=== PATIENT | female | born 1990 | race Two or more races ===

== ENCOUNTER 2023-06-16 09:39 | Outpatient (CLI) | payer OTHER ==
[2023-06-16 10:13] LABS: PH,URINE 7.5 (5.0-8.0); URINE APPEARANCE Clear; URINE BILIRRUBIN Negative (NEGATIVE); URINE BLOOD Negative; URINE COLOR Yellow; URINE GLUCOSE Negative (NEGATIVE); URINE LEUKOCYTE Negative; URINE NITRATE Negative; URINE PROTEIN Negative (NEGATIVE); URINE UROBILINOGEN 0.2 E.U./dl
[2023-06-16 10:18] LABS: URINE WBC 2.1 uL (0.0-23.2)
[2023-06-16 10:27] LABS: URINE EPITHELIAL CELLS 1.2 uL (0.0-38.8); URINE RBC 1.8 uL (0.0-20.8)
[2023-06-16 10:37] LABS: HEMATOCRIT 39.6 % (36.0-45.00); HEMOGLOBIN 12.9 g/dL (12.0-15.00); MEAN CELL VOLUME 83.5 fL (80.00-100.00); MEAN CORPUSCULAR HEMOGLOBIN 27.3 pg (27.00-32.0); MEAN CORPUSCULAR HGB CONC 32.7 g/dl (32.0-36.0); PLATELET COUNT 298 K/uL (150-450); RED BLOOD COUNT 4.74 M/uL (4.00-6.00); RED CELL DISTRIBUTION WIDTH 14.2 % (11.5-14.5)
[2023-06-16 11:07] LABS: ALBUMIN 3.9 gm/dL (3.4-5.0); BILIRUBIN TOTAL 0.56 mg/dL (0.3-1.2); CALCIUM 9.1 mg/dL (8.5-10.1); CHOL HDL RATIO 2.3 (0-5.0); CREATININE SERUM 0.61 mg/dL (0.55-1.02); GFR 112.27; GLOBULINA 3.9 G/DL (2.4-3.5); POTASSIUM 3.45 mEq/L (3.5-5.1); TOTAL PROTEIN 7.8 gm/dL (6.4-8.2); TSH 0.794 uIU/mL (0.358-3.74)
[2023-06-16 11:22] LABS: INR 1.09; PARTIAL THROMBOPLASTIN TIME 32.2 SECONDS (22.0-34.0); PROTHROMBIN TIME 11.4 SECONDS (9.0-11.5)
[2023-06-17 09:08] LABS: FOLLICLE STIMULATING HORMONE 3.8 mIU/mL (.); LEUTEINIZING HORMONE 5.3 mIU/mL (.); PROGESTERONA 0.1 ng/mL (.); PROLACTIN 11.8 ng/mL (4.8-33.4)
== END 2023-06-16 09:48 | disposition home or self-care (01) ==
LOC: LAB 09:39
DX: N39.0 Urinary tract infection, site not specified (principal); Z79.01 Long term (current) use of anticoagulants; E83.52 Hypercalcemia; R68.82 Decreased libido; Z12.11 Encounter for screening for malignant neoplasm of colon; N94.5 Secondary dysmenorrhea; E11.9 Type 2 diabetes mellitus without complications; E55.9 Vitamin D deficiency, unspecified; R50.9 Fever, unspecified; E78.2 Mixed hyperlipidemia; E03.8 Other specified hypothyroidism; E22.1 Hyperprolactinemia; N94.6 Dysmenorrhea, unspecified

== ENCOUNTER 2023-06-17 06:42 | Outpatient (CLI) | payer OTHER ==
[2023-06-17 09:35] LABS: ob NEGATIVE (NEGATIVE)
== END 2023-06-17 06:43 | disposition home or self-care (01) ==
LOC: LAB 06:42
PROVIDERS: ATTEND General Practice
DX: N39.0 Urinary tract infection, site not specified (principal); E11.9 Type 2 diabetes mellitus without complications; E55.9 Vitamin D deficiency, unspecified; R50.9 Fever, unspecified; E78.2 Mixed hyperlipidemia; E03.8 Other specified hypothyroidism; E22.1 Hyperprolactinemia; N94.5 Secondary dysmenorrhea; N94.6 Dysmenorrhea, unspecified; R68.82 Decreased libido; Z12.11 Encounter for screening for malignant neoplasm of colon; Z79.01 Long term (current) use of anticoagulants; R73.09 Other abnormal glucose

== ENCOUNTER → 2023-10-06 10:50 | Outpatient (CLI) | payer OTHER ==
[2023-10-06 11:25] LABS: PH,URINE 5.5 (5.0-8.0); URINE APPEARANCE Clear; URINE BILIRRUBIN Negative (NEGATIVE); URINE BLOOD Negative; URINE COLOR Yellow; URINE GLUCOSE Negative (NEGATIVE); URINE KETONE 15 (NEGATIVE); URINE LEUKOCYTE Negative; URINE NITRATE Negative; URINE PROTEIN Negative (NEGATIVE); URINE UROBILINOGEN 0.2 E.U./dl
[2023-10-06 11:26] LABS: URINE BACTERIA 836.6 uL (0.0-1933); URINE EPITHELIAL CELLS 12.6 uL (0.0-38.8); URINE RBC 9.6 uL (0.0-20.8); URINE WBC 5.5 uL (0.0-23.2)
[2023-10-06 11:40] LABS: HEMATOCRIT 37.9 % (36.0-45.00); HEMOGLOBIN 12.5 g/dL (12.0-15.00); MEAN CORPUSCULAR HEMOGLOBIN 27.1 pg (27.00-32.0); MEAN CORPUSCULAR HGB CONC 33.1 g/dl (32.0-36.0); PLATELET COUNT 251 K/uL (150-450); RED BLOOD COUNT 4.61 M/uL (4.00-6.00); RED CELL DISTRIBUTION WIDTH 14.6 % (11.5-14.5)
[2023-10-06 11:45] LABS: ERYTHROCYTE SEDIMENTATION RATE 4 mm/hr
[2023-10-06 12:08] LABS: ALKALINE PHOSPHATASE 49 U/L (50-136); ALT/SGPT 19 U/L (12-78); ANION GAP 7 (10.0-20.0); AST/SGOT 19 U/L (15-37); BILIRUBIN TOTAL 0.79 mg/dL (0.3-1.2); BLOOD UREA NITROGEN 9 mg/dL (7-18); BUN CREA RATIO 16 (7.0-25.0); CALCIUM 8.8 mg/dL (8.5-10.1); CARBON DIOXIDE 29 mEq/L (21-32); CHLORIDE 109 mmol/L (98-107); CHOL HDL RATIO 2.2 (0-5.0); CHOLESTEROL 160 mg/dL (0-200); CREATININE SERUM 0.58 mg/dL (0.55-1.02); GLOBULINA 3.5 G/DL (2.4-3.5); GLUCOSE FASTING 85 mg/dL (65-100); HDL 72 mg/dl (40-60); LDL 81 mg/dl (0-130); OSMOLALITY SERUM 279 MOSM/KG (275-295); POTASSIUM 3.59 mEq/L (3.5-5.1); SODIUM 141 mmol/L (136-145); TOTAL PROTEIN 7.5 gm/dL (6.4-8.2); TRIGLYCERIDES 34 mg/dL (0-150); TSH 0.823 uIU/mL (0.358-3.74); VLDL 6 (0-39)
[2023-10-06 12:09] LABS: C-REACTIVE PROTEIN < 0.29 MG/DL (0.00-0.29)
== END | disposition home or self-care (01) ==
LOC: LAB 10:50
DX: N39.9 Disorder of urinary system, unspecified (principal); Z32.00 Encounter for pregnancy test, result unknown; E83.52 Hypercalcemia; R68.82 Decreased libido; N94.5 Secondary dysmenorrhea; N94.6 Dysmenorrhea, unspecified; E11.9 Type 2 diabetes mellitus without complications; E55.9 Vitamin D deficiency, unspecified; R50.9 Fever, unspecified; E78.2 Mixed hyperlipidemia; E03.8 Other specified hypothyroidism; E22.1 Hyperprolactinemia; M16.0 Bilateral primary osteoarthritis of hip

== ENCOUNTER 2023-10-06 11:30 | Outpatient (CLI) | payer OTHER | END 2023-10-06 11:38 | disposition home or self-care (01) | LOC: RAD 11:30 | DX: M54.12 Radiculopathy, cervical region (principal); M54.9 Dorsalgia, unspecified; M54.50 Low back pain, unspecified; M25.561 Pain in right knee; M25.562 Pain in left knee ==

== ENCOUNTER 2023-12-20 07:21 | Outpatient (CLI) | payer OTHER ==
[2023-12-22 11:42] LABS: hav igm Negative (Negative); hcv Non Reactive (Non Reactive); hep b c Negative (Negative); hep b s ag Negative (Negative)
[2023-12-22 23:05] LABS: chla t Negative (Negative); neiss Negative (Negative)
[2023-12-27 09:46] LABS: hsv I pcr NEGATIVE
== END 2023-12-20 07:22 | disposition home or self-care (01) ==
LOC: LAB 07:21
PROVIDERS: ATTEND Obstetrics & Gynecology
DX: A64 Unspecified sexually transmitted disease (principal)

== ENCOUNTER 2024-01-07 11:51 | Outpatient (CLI) | payer OTHER | END 2024-01-07 11:56 | disposition home or self-care (01) | LOC: SONOGRAMA 11:51 | PROVIDERS: ATTEND Obstetrics & Gynecology | DX: R10.2 Pelvic and perineal pain (principal) ==

== ENCOUNTER 2024-07-07 09:14 | Outpatient (CLI) | payer OTHER ==
[2024-07-07 10:50] LABS: BASO % 0.5 % (0.1-1.2); EOS # 0.15 (0.04-0.54); EOS % 2.5 % (0.7-7.0); HEMOGLOBIN 12.7 g/dL (11.2-15.7); LYMPH # 1.38 (1.18-3.74); LYMPH % 23.2 % (19.3-53.1); MEAN CORPUSCULAR HEMOGLOBIN 27.1 pg (25.6-32.2); MONO # 0.53 (0.24-0.82); MONO % 8.9 % (4.7-12.5); NEUT # 3.86 (1.56-6.13); NEUT % 64.7 % (34.0-71.1); PLATELET COUNT 268 K/uL (163-369); RED BLOOD COUNT 4.69 M/uL (3.93-5.22); RED CELL DISTRIBUTION WIDTH 13.9 % (11.6-14.4)
[2024-07-07 10:58] LABS: PH,URINE 5.5 (5.0-8.0); URINE APPEARANCE Clear; URINE BILIRRUBIN Negative (NEGATIVE); URINE BLOOD Trace; URINE COLOR Yellow; URINE GLUCOSE Negative (NEGATIVE); URINE KETONE Negative (NEGATIVE); URINE LEUKOCYTE Negative; URINE NITRATE Negative; URINE PROTEIN Negative (NEGATIVE); URINE UROBILINOGEN 0.2 E.U./dl
[2024-07-07 11:02] LABS: URINE BACTERIA 674.1 uL (0.0-1933); URINE EPITHELIAL CELLS 11.7 uL (0.0-38.8); URINE RBC 4.2 uL (0.0-20.8)
[2024-07-07 11:06] LABS: URINE WBC 1.2 uL (0.0-23.2)
[2024-07-07 11:33] LABS: ob NEGATIVE (NEGATIVE)
[2024-07-07 11:50] LABS: ALBUMIN 3.8 gm/dL (3.4-5.0); BILIRUBIN TOTAL 0.74 mg/dL (0.3-1.2); CALCIUM 8.6 mg/dL (8.5-10.1); CHOL HDL RATIO 2.3 (0-5.0); CREATININE SERUM 0.59 mg/dL (0.55-1.02); GFR 115.99; GLOBULINA 3.5 G/DL (2.4-3.5); POTASSIUM 3.68 mEq/L (3.5-5.1); TOTAL PROTEIN 7.3 gm/dL (6.4-8.2); TSH 0.861 uIU/mL (0.358-3.74)
[2024-07-07 15:59] LABS: RAPID PLASMA REAGIN NONREACTIVE BY RPR (NONREACTIVE)
[2024-07-09 09:08] LABS: FOLLICLE STIMULATING HORMONE 3.5 mIU/mL (.); PROGESTERONA 1.5 ng/mL (.); PROLACTIN 18.8 ng/mL (4.8-33.4)
[2024-07-11 01:07] LABS: HSV I IGG TYPE SPECIFIC Non Reactive (Non Reactive); hav igm Negative (Negative); hcv Non Reactive (Non Reactive); hep b c Negative (Negative); hep b s ag Negative (Negative)
[2024-07-11 21:07] LABS: chla t Negative (Negative); neiss Negative (Negative)
[2024-07-11 23:11] LABS: T T 30 ng/dL (8-60); test free 1.3 pg/mL (0.0-4.2)
== END 2024-07-07 09:29 | disposition home or self-care (01) ==
LOC: LAB 09:14
DX: N39.0 Urinary tract infection, site not specified (principal); E83.52 Hypercalcemia; R68.82 Decreased libido; Z12.11 Encounter for screening for malignant neoplasm of colon; N94.5 Secondary dysmenorrhea; N94.6 Dysmenorrhea, unspecified; E11.9 Type 2 diabetes mellitus without complications; R50.9 Fever, unspecified; E78.2 Mixed hyperlipidemia; E03.8 Other specified hypothyroidism; E22.1 Hyperprolactinemia; E16.2 Hypoglycemia, unspecified; A64 Unspecified sexually transmitted disease; Z11.3 Encounter for screening for infections with a predominantly sexual mode of transmission; B18.2 Chronic viral hepatitis C

== ENCOUNTER 2024-08-09 12:35 | Outpatient (CLI) | payer OTHER | END 2024-08-09 12:39 | disposition home or self-care (01) | LOC: RAD 12:35 | DX: M99.03 Segmental and somatic dysfunction of lumbar region (principal); M99.02 Segmental and somatic dysfunction of thoracic region; M99.01 Segmental and somatic dysfunction of cervical region ==

== ENCOUNTER 2024-08-10 14:15 | Outpatient (CLI) | payer OTHER | END 2024-08-10 14:17 | disposition home or self-care (01) | LOC: SONOGRAMA 14:15 | DX: R07.89 Other chest pain (principal) ==

== ENCOUNTER 2025-01-16 07:40 | Outpatient (CLI) | payer OTHER ==
[2025-01-16 08:51] LABS: BASO % 0.6 % (0.1-1.2); EOS # 0.07 (0.04-0.54); EOS % 1.3 % (0.7-7.0); LYMPH # 1.39 (1.18-3.74); LYMPH % 26.1 % (19.3-53.1); MEAN PLATELET VOLUME 9.50 fl (9.4-12.4); MONO # 0.49 (0.24-0.82); MONO % 9.2 % (4.7-12.5); NEUT # 3.34 (1.56-6.13); NEUT % 62.6 % (34.0-71.1); RED CELL DISTRIBUTION WIDTH 15.0 % (11.6-14.4)
[2025-01-16 08:56] LABS: URINE APPEARANCE Clear; URINE BILIRRUBIN Negative (NEGATIVE); URINE BLOOD Negative; URINE COLOR Yellow; URINE GLUCOSE Negative (NEGATIVE); URINE KETONE Negative (NEGATIVE); URINE LEUKOCYTE Negative; URINE NITRATE Negative; URINE PROTEIN Negative (NEGATIVE); URINE UROBILINOGEN 0.2 E.U./dl
[2025-01-16 09:01] LABS: URINE BACTERIA 59.9 uL (0.0-1933); URINE EPITHELIAL CELLS 7.8 uL (0.0-38.8)
[2025-01-16 09:08] LABS: URINE CAST 0.00 uL (0.0-1.40); URINE RBC 1.7 uL (0.0-20.8); URINE WBC 1.5 uL (0.0-23.2)
[2025-01-16 09:37] LABS: ALT/SGPT 16.0 U/L (12-78); AST/SGOT 16.0 U/L (15-37); BILIRUBIN TOTAL 0.81 mg/dL (0.3-1.2); BUN CREA RATIO 15.0 (7.0-25.0); CHOL HDL RATIO 2.1 (0-5.0); CREATININE SERUM 0.53 mg/dL (0.55-1.02); GFR 130.53; GLOBULINA 3.5 G/DL (2.4-3.5); GLUCOSE FASTING 92.0 mg/dL (65-100); HDL 86.0 mg/dl (40-60); LDL 76.0 mg/dl (0-130); OSMOLALITY SERUM 277.0 MOSM/KG (275-295); TSH 0.997 uIU/mL (0.358-3.74); VLDL 15.0 (0-39)
[2025-01-17 08:11] LABS: HSV I IGG TYPE SPECIFIC Non Reactive (Non Reactive); hav igm Negative (Negative); hep b c Negative (Negative); hep b s ag Negative (Negative)
[2025-01-17 10:07] LABS: ESTRADIOL SERUM 388.0 pg/mL (.); LEUTEINIZING HORMONE 18.4 mIU/mL (.); PROGESTERONA 0.2 ng/mL (.); PROLACTIN 22.6 ng/mL (4.8-33.4)
[2025-01-18 06:08] LABS: chla t Negative (Negative); neiss Negative (Negative)
[2025-01-18 18:11] LABS: T T 41 ng/dL (8-60); test free 2.2 pg/mL (0.0-4.2)
== END 2025-01-16 07:47 | disposition home or self-care (01) ==
LOC: LAB 07:40
DX: N39.0 Urinary tract infection, site not specified (principal); E83.52 Hypercalcemia; Z32.00 Encounter for pregnancy test, result unknown; R68.82 Decreased libido; Z12.11 Encounter for screening for malignant neoplasm of colon; N94.6 Dysmenorrhea, unspecified; N94.5 Secondary dysmenorrhea; E11.9 Type 2 diabetes mellitus without complications; E55.9 Vitamin D deficiency, unspecified; E78.2 Mixed hyperlipidemia; R50.9 Fever, unspecified; E03.8 Other specified hypothyroidism; E22.1 Hyperprolactinemia; A64 Unspecified sexually transmitted disease; Z11.3 Encounter for screening for infections with a predominantly sexual mode of transmission; B18.2 Chronic viral hepatitis C